=== PATIENT | female | born 2000 | race Caucasian/White ===

== ENCOUNTER 2018-05-18 12:57 | Emergency (ER) | payer SELFPAY ==
[2018-05-18 13:23] VITALS: BP 127/82; PULSE 67; TEMP 98.2; BMI 33.5
--- NOTE | 2018-05-18 14:14 | PDOC ---
History of Present Illness - General Chief Complaint: Urinary Problem Stated Complaint: Pain Time Seen by Provider: 05/18/18 13:59 - History of Present Illness Initial Comments: 05/18/18 14:13 18-year-old female with dysuria times one day without systemic symptoms. She has no comorbidities Past History - Past Medical History Allergies/Adverse Reactions: Allergies Allergy/AdvReac Type Severity Reaction Status Date / Time No Known Allergies Allergy Verified 05/18/18 13:19 Home Medications: Ambulatory Orders Nitrofurantoin Monohyd/M-Cryst [Macrobid -] 100 mg PO BID #14 capsule 05/18/18 COPD: No - Immunization History Immunization Up to Date: Yes - Suicide/Smoking/Psychosocial Hx Smoking History: Never smoked Drug/Substance Use Hx: Yes (MARIJUANA) Review of Systems - Review of Systems : Yes: Burning, Dysuria *Physical Exam - Vital Signs Last Vital Signs Temp Pulse Resp BP Pulse Ox 98.2 F 67 16 127/82 100 05/18/18 13:20 05/18/18 13:20 05/18/18 13:20 05/18/18 13:20 05/18/18 13:20 - Physical Exam Comments: 05/18/18 14:13 HEAD: NC/AT EYES: Conjuntiva clear MS: Full ROM in all joints without edema NEUROLOGIC: No gross sensory or motor deficits, NVID SKIN: Normal color and temperature no lesions or rashes Moderate Sedation - Procedure Monitoring Vital Signs: Procedure Monitoring Vital Signs Temperature 98.2 F 05/18/18 13:20 Pulse Rate 67 05/18/18 13:20 Respiratory Rate 16 05/18/18 13:20 Blood Pressure 127/82 05/18/18 13:20 O2 Sat by Pulse Oximetry (%) 100 05/18/18 13:20 *DC/Admit/Observation/Transfer Diagnosis at time of Disposition: UTI (urinary tract infection) - Discharge Dispostion Disposition: HOME Condition at time of disposition: Stable Decision to Admit order: No - Prescriptions Prescriptions: Nitrofurantoin Monohyd/M-Cryst [Macrobid -] 100 mg PO BID #14 capsule - Referrals Referrals: Peterson Beckman MD [Primary Care Provider] - - Patient Instructions Printed Discharge Instructions: DI for Urinary Tract Infection (UTI) Additional Instructions: Return to the emergency room should symptoms worsen or go unresolved. Please follow-up with your primary care physician in one to 2 days for further evaluation and treatment options. Please take the antibiotics as directed. - Post Discharge Activity
[2018-05-18 14:49] LABS: HCG,QUALITATIVE URINE Negative
[2018-05-18 14:59] LABS: URINE APPEARANCE SLCLOUDY; URINE BILIRUBIN NEGATIVE (<2.0 mg/dL); URINE COLOR YELLOW; URINE GLUCOSE (UA) NEGATIVE (NEGATIVE); URINE KETONE NEGATIVE (NEGATIVE); URINE LEUK ESTERASE 1+ (NEGATIVE); URINE NITRITE NEGATIVE (NEGATIVE); URINE PROTEIN 2+ (NEGATIVE); URINE UROBILINOGEN NEGATIVE mg/dL (0.2-1.0)
[2018-05-18 15:13] LABS: EPI CELLS FEW /HPF (FEW); URINE MUCUS RARE
== END 2018-05-18 15:28 | disposition home or self-care (01) ==
LOC: JERFT 12:57
DX: N39.0 Urinary tract infection, site not specified (principal)
CPT/HCPCS: 81003; 81015; 84703; 87086; 99281-25

== ENCOUNTER 2018-06-22 13:02 | Emergency (ER) | payer OTHER ==
[2018-06-22 13:11] VITALS: BP 109/54; PULSE 78; TEMP 98.7; BMI 33.0
--- NOTE | 2018-06-22 14:51 | PDOC ---
History of Present Illness - General Chief Complaint: Vaginal Bleeding Stated Complaint: CYST PAIN Time Seen by Provider: 06/22/18 13:42 History Source: Patient Exam Limitations: No Limitations - History of Present Illness Travel History: No Initial Comments: 06/22/18 15:20 18-year-old female presents to ED with complaints of vaginal spotting upon urination this morning. Patient also complaining of mild mid suprapubic cramping. Patient states LMP was the 22nd of last month but has confirmed her with her first visit at [facility] last week. Patient states has an ultrasound pending in 2 weeks. Patient denies fever, chills or urinary complaints. Patient denies back pain headache, dizziness or weakness. Timing/Duration: reports: constant Quality: reports: mild, cramping Abdominal Pain Onset Location: reports: suprapubic Pain Radiation: reports: no radiation Activities at Onset: reports: none Aggravating Factors: improves with: None Alleviating Factors: improves with: None Past History - Travel Traveled outside of the country in the last 30 days: No Close contact w/someone who was outside of country & ill: No - Past Medical History Allergies/Adverse Reactions: Allergies Allergy/AdvReac Type Severity Reaction Status Date / Time No Known Allergies Allergy Verified 05/18/18 13:19 Home Medications: Ambulatory Orders NK [No Known Home Medication] 06/22/18 COPD: No Other medical history: lt. Ovarian cyst - Immunization History Immunization Up to Date: Yes - Suicide/Smoking/Psychosocial Hx Smoking History: Former smoker Have you smoked in the past 12 months: No Information on smoking cessation initiated: No Hx Alcohol Use: No Drug/Substance Use Hx: No Patient Lives Alone: No Lives with/in: parents Review of Systems - Review of Systems Able to Perform ROS?: Yes Constitutional: No: Symptoms Reported HEENTM: No: Symptoms Reported Respiratory: No: Symptoms reported Cardiac (ROS): No: Symptoms Reported ABD/GI: Yes: Abdominal cramping : Yes: Discharge (vag bleeding). No: Symptoms Reported Musculoskeletal: No: Symptoms Reported Integumentary: No: Symptoms Reported Neurological: No: Symptoms reported Hematologic/Lymphatic: No: Symptoms Reported *Physical Exam - Vital Signs Last Vital Signs Temp Pulse Resp BP Pulse Ox 98.7 F 78 18 109/54 L 100 06/22/18 13:08 06/22/18 13:08 06/22/18 13:08 06/22/18 13:08 06/22/18 13:08 - Physical Exam General Appearance: Yes: Nourished, Appropriately Dressed. No: Apparent Distress HEENT: positive: EOMI, LAISHA, TMs Normal, Pharynx Normal Neck: positive: Supple Respiratory/Chest: positive: Lungs Clear, Normal Breath Sounds. negative: Respiratory Distress, Accessory Muscle Use Cardiovascular: positive: Regular Rhythm, Regular Rate. negative: Murmur Female Pelvic Exam: positive: cervical os closed, vaginal bleeding (scant light brown). negative: adnexal tenderness Gastrointestinal/Abdominal: positive: Soft, Tenderness (mild mid suprapubic) Musculoskeletal: negative: CVA Tenderness Integumentary: positive: Normal Color, Warm, Moist Neurologic: positive: Motor Strength 5/5 (mbulatory) Moderate Sedation - Procedure Monitoring Vital Signs: Procedure Monitoring Vital Signs Temperature 98.7 F 06/22/18 13:08 Pulse Rate 78 06/22/18 13:08 Respiratory Rate 18 06/22/18 13:08 Blood Pressure 109/54 L 06/22/18 13:08 O2 Sat by Pulse Oximetry (%) 100 06/22/18 13:08 ED Treatment Course - LABORATORY CBC & Chemistry Diagram: 06/22/18 14:45 06/22/18 14:50 - RADIOLOGY Radiology Studies Ordered: Category Date Time Status TRANSVAGINAL US PREG [US] Stat Ultrasound 06/22/18 13:47 Ordered Medical Decision Making - Medical Decision Making 06/22/18 15:55 CC: Vaginal spotting since this morning with mid suprapubic tenderness. Patient states approximate 6-7 weeks . Exam. Patient with mid suprapubic tenderness no adnexal tenderness with scant light brown blood noted in vault. Plan: Labs urine and ultrasound ordered 06/22/18 18:16 Laboratory Tests 06/22/18 06/22/18 06/22/18 14:41 14:45 14:50 WBC 9.6 Hgb 13.6 Hct 39.7 Absolute Neuts (auto) 6.5 Neutrophils % 67.3 Sodium 138 Potassium 4.2 Chloride 107 Carbon Dioxide 24 Anion Gap 7 L BUN 7 Creatinine 0.7 Random Glucose 88 Calcium 9.0 Total Bilirubin 0.2 AST 18 ALT 46 Alkaline Phosphatase 93 Total Protein 7.0 Albumin 3.9 Beta HCG, Quant 32798.0 Urine Ketones Negative Urine Blood 2+ H Urine Nitrite Negative Ur Leukocyte Esterase Negative Urine WBC (Auto) <1 Urine RBC (Auto) <1 06/22/18 18:19 Noted viable intrauterine gestation measuring 5 weeks 5 days. No definitive sonographic abnormality identified. Discharge recommendations to start vitamins. *DC/Admit/Observation/Transfer Diagnosis at time of Disposition: Threatened - Discharge Dispostion Disposition: HOME Condition at time of disposition: Good - Referrals - Patient Instructions Printed Discharge Instructions: DI for Threatened Additional Instructions: Start taking prenatals and increase your vegetable, food intake including apricots pistachios almonds and other foods high in folic acid. Please follow-up with your OFFICE MACHINE SERVICE SUPERVISOR and bring copy of the lab work and ultrasound with you. Please return to ED if you develop any severe abd pain, heavy vaginal bleeding, or dizziness. - Post Discharge Activity
[2018-06-22 14:57] LABS: URINE APPEARANCE CLEAR; URINE BILIRUBIN NEGATIVE (<2.0 mg/dL); URINE COLOR LTYELLOW; URINE GLUCOSE (UA) NEGATIVE (NEGATIVE); URINE KETONE NEGATIVE (NEGATIVE); URINE LEUK ESTERASE NEGATIVE (NEGATIVE); URINE NITRITE NEGATIVE (NEGATIVE); URINE PROTEIN NEGATIVE (NEGATIVE); URINE UROBILINOGEN NEGATIVE mg/dL (0.2-1.0)
[2018-06-22 15:06] LABS: BASO % 0.7 % (0-2.0); HEMATOCRIT 39.7 % (32.4-45.2); HEMOGLOBIN 13.6 GM/dL (10.7-15.3); LYMPH % 24.5 % (8-40); MCHC 34.3 g/dl (32.0-36.0); MEAN CELL VOLUME 90.2 fl (80-96); MEAN PLT VOLUME 9.3 fl (7.5-11.1); MONO % 6.5 % (3.8-10.2); NEUT % 67.3 % (42.8-82.8); PLATELET COUNT 273 K/MM3 (134-434); WHITE BLOOD COUNT 9.6 K/mm3 (4.0-10.0)
[2018-06-22 15:30] LABS: EPI CELLS RARE /HPF (FEW); URINE MUCUS RARE
[2018-06-22 15:53] LABS: ALBUMIN 3.9 g/dl (3.4-5.0); ALK PHOS 93 U/L (45-117); ANION GAP 7 MMOL/L (8-16); BILIRUBIN,TOTAL 0.2 mg/dL (0.2-1); BLOOD UREA NITROGEN 7 mg/dL (7-18); CHLORIDE 107 mmol/L (98-107); CO2 24 mmol/L (21-32); CREATININE 0.7 mg/dL (0.55-1.3); GLUCOSE,RANDOM 88 mg/dL (74-106); POTASSIUM 4.2 mmol/L (3.5-5.1); SGOT/AST 18 U/L (15-37); SGPT/ALT 46 U/L (13-61); SODIUM 138 mmol/L (136-145)
== END 2018-06-22 18:26 | disposition home or self-care (01) ==
LOC: JER 13:02
DX: O26.891 Other specified pregnancy related conditions, first trimester (principal); O20.0 Threatened abortion; Z3A.01 Less than 8 weeks gestation of pregnancy
CPT/HCPCS: 36415; 76817-TC; 80053; 81003; 81015; 84702; 85025; 86850; 86900; 86901; 87086; 99282-25

== ENCOUNTER 2019-02-06 18:35 | Inpatient (IN) | payer OTHER ==
[2019-02-06] MEDS: ELECTROLYTE-148 SOLN 1,000 ML IV SCH (19:50)
[2019-02-06] MEDS ORDERED: AMPICILLIN SODIUM 2 GM VIAL ONE (19:51)
--- NOTE | 2019-02-06 19:58 | HP ---
Past Medical History - Primary Care Physician PCP:: Zaki Bowman - Admission Chief Complaint: LOF since 6am History of Present Illness: She denies VB and reports +FM. Patient also reports mild contractions History Source: Patient Limitations to Obtaining History: No Limitations - Past Medical History CIGAR BANDER HAND: No: Alzheimer's, CVA, Dementia, Migraine, Multiple Sclerosis, Peripheral Neuropathy, Parkinson's, Seizure, Syncope, TIA, Vertigo, Other Cardiovascular: No: AFIB, Aneurysm, Aortic Insufficiency, Aortic Stenosis, CAD, CHF, Deep Vein Thrombosis, HTN, Hyperlipdemia, ID, Mitral Insufficiency, Mitral Stenosis, Murmur, Pulmonary Hypertension, Other Pulmonary: No: Asthma, Bronchitis, Cancer, COPD, O2 Dependent, Pneumonia, Previously Intubated, Pulmonary Embolus, Pulmonary Fibrosis, Sleep Apnea, Other Gastrointestinal: No: Ascites, Cancer, Constipation, Crohn's Disease, Diverticulitis, Diverticulosis, Esophageal Varices, Gastritis, GERD, GI Bleed, Hemorrhoids, Hiatal Hernia, Inflamatory Bowel Disease, Irritable Bowel Disease, Pancreatitis, Peptic Ulcer Disease, Ulcerative Colitis, Other Hepatobiliary: No: Cirrhosis, Cholelithiasis, Cholecystitis, Choledocholithiasis , Hepatitis A, Hepatitis B, Hepatitis C, Other Renal/: No: Renal Failure, Renal Inusuff, BPH, Cancer, Hematuria, Hemodialysis , Neurogenic Bladder, Renal Calculi, UTI, Other Reproductive: No: Ectopic , Endometriosis, Fibroids, PID, Polycystic Ovary Syndrome, Postmenopausal, Other Heme/Onc: No: Anemia, B12 Deficiency, Bleeding Disorder, Cancer, Current Chemotherapy, Current Radiation Therapy, Hemochromatosis, Hypercoaguable State, Myeloproliferative Synd, Sickle Cell Disease, Sickle Cell Trait, Thrombocytopenia, Other Infectious Disease: No: AIDS, C-Diff, Herpes Zoster, HIV, MRSA, STD's, Tuberculosis, VREF, Other Psych: No: Addictions, Anxiety, Bipolar, Depression, Panic, Psychosis, Schizophrenia, Other Musculoskeletal: No: Bursitis, Chronic low back pain, Hemiparesis, Hemiplegia, Osteoarthritis, Paraplegia, Other Rheumatology: No: Fibromyalgia, Gout, Lupus, Rheumatoid Arthritis, Sarcoidosis, Vasculitis, Other ENT: No: Allergic Rhinitis, Sinusitis, Other Endocrine: No: Jose's Disease, [place]'s Disease, Diabetes Insipidus, Diabetes Mellitus, Hyperparathyroidism, Hyperthyroidism, Hypothyroidism, Osteopenia, SIADH, Other Dermatology: No: Basal Cell, Cellulitis, Eczema, Melanoma, Psoriasis, Squamous Cell, Other - Past Surgical History Past Surgical History: No: None, AAA Repair, AICD, Amputation, Appendectomy, Arthrosocopy, AV Fistula/Graft, Bariatric Surgery, Breast Biopsy, Bypass, CABG, Carotid Endarterectomy, Cataract Removal, Cholecystectomy, Colectomy, Colonoscopy, Colostomy, Craniotomy, , Cystectomy, Hernia Repair, Hysterectomy, Ileal Conduit, Ileosotomy, Joint Replacement, Kidney Transplant, Laminectomy, Liver Transplant, Mastectomy, Nephrectomy, Oopherectomy, Orchiectomy, Permanent Pacemaker, Prostatectomy, Splenectomy, Stent, Thoracotomy , TURP, Tonsillectomy, Tubal Ligation, Upper Endoscopy, Valve Replacement, Vasectomy, Vein Stripping/Ligation Hx Myomectomy: No Hx Transabdominal Cerclage: No - Smoking History Smoking history: Former smoker Have you smoked in the past 12 months: No - Alcohol/Substance Use Hx Alcohol Use: No Home Medications - Allergies Allergies/Adverse Reactions: Allergies Allergy/AdvReac Type Severity Reaction Status Date / Time No Known Allergies Allergy Verified 12/10/18 18:47 - Home Medications Home Medications: Ambulatory Orders Ferrous Sulfate [Iron] 325 mg PO DAILY 12/10/18 Vit No.129/Iron/Folic [ One Daily Tablet] 1 tab PO DAILY Review of Systems Findings/Remarks: Leaking fluid - Review of Systems Constitutional: reports: No Symptoms Eyes: reports: No Symptoms HENT: reports: No Symptoms Neck: reports: No Symptoms Cardiovascular: reports: No Symptoms Respiratory: reports: No Symptoms Gastrointestinal: reports: No Symptoms Genitourinary: reports: No Symptoms Breasts: reports: No Symptoms Reported Musculoskeletal: reports: No Symptoms Integumentary: reports: No Symptoms Neurological: reports: No Symptoms Endocrine: reports: No Symptoms Hematology/Lymphatic: reports: No Symptoms Psychiatric: reports: No Symptoms Physical Exam - Maternity Constitutional: Yes: Calm HENT: Yes: Atraumatic, Normocephalic, Tonsillar Exudate Cardiovascular: Yes: Regular Rate and Rhythm Breast(s): Yes: Other (deferred) - Abdominal Exam/OB Number of Fetuses: Single Presentation: Vertex (bedside sono: cephalic presentation, Anhydramnios ( no measurable packet)) Contractions: Yes Regularity: Irregular Intensity: Mild Monitor Mode: External Heart Rate (range): 150 Category: I Accelerations: Uniform Decelerations: None - Vaginal Exam/OB Vaginal Bleediing: Yes Speculum Exam: No Dilatation (cm): 0.5 Effacement (%): 50 Amniotic Membrane Status: Leaking Nitrazine Test: Positive Presentation: Vertex/Position Station: -3 - Physical Exam Musculoskeletal: Yes: WNL Extremities: Yes: WNL Edema: Yes Edema: LLE: Trace, RLE: Trace Integumentary: Yes: WNL ...Motor Strength: WNL Psychiatric: Yes: Alert, Oriented Imaging - Results Ultrasound: Report Reviewed Assessment/Plan 18 y/o P0 @ 38.3 wks, PROM since 1 am, no evidence of chorioamnionitis, reassuring status and stable maternal condition. Significance of PROM explained as well as indication for induction of labor. All questions answered. Unable to obtain hard copy of 36 wks labs but attending confirms negative GC/ Chlamydia virtual results -Admit -Basic labs -Po cytotec protocol GBS + and prophylaxis ordered
[2019-02-06] MEDS ORDERED: AMPICILLIN - 2 GM in SODIUM CHLORIDE 100 ML IVPB ONE (20:00)
[2019-02-06 20:11] LABS: BASO % 1.2 % (0-2.0); EOS % 0.6 % (0-4.5); HEMATOCRIT 36.3 % (32.4-45.2); HEMOGLOBIN 12.4 GM/dL (10.7-15.3); MCH 30.8 pg (25.7-33.7); MCHC 34.1 g/dl (32.0-36.0); MEAN CELL VOLUME 90.1 fl (80-96); MONO % 5.1 % (3.8-10.2); NEUT % 65.1 % (42.8-82.8); RBC 4.03 M/mm3 (3.60-5.2); RDW 13.1 % (11.6-15.6); WHITE BLOOD COUNT 8.7 K/mm3 (4.0-10.0)
[2019-02-06 20:24] LABS: INR 0.9 (0.83-1.09); PROTHROMBIN TIME (PATIENT) 10.6 SEC (9.7-13.0)
[2019-02-06 20:29] LABS: BLOOD UREA NITROGEN 9.5 mg/dL (7-18); CALCIUM 8.8 mg/dL (8.5-10.1); CREATININE 0.7 mg/dL (0.55-1.3)
[2019-02-06 20:32] VITALS: BMI 36.3
[2019-02-06 21:06] LABS: MEAN PLT VOLUME 12.2 fl (7.5-11.1); PLATELET COUNT 199 K/MM3 (134-434)
[2019-02-06] MEDS: MISOPROSTOL 25 MCG TABLET (COMPOUNDED BY PHARMACY) PO SCH (22:00)
[2019-02-06] MEDS ORDERED: AMPICILLIN SODIUM 1 GM VIAL ONE (23:49)
[2019-02-06] MEDS: AMPICILLIN - 1 GM in SODIUM CHLORIDE 100 ML IVPB SCH (23:56)
[2019-02-07] MEDS ORDERED: BUTORPHANOL TARTRATE 1 MG/ML VIAL ONE (00:27)
[2019-02-07] MEDS ORDERED: PROMETHAZINE HCL 25 MG/1 ML VIAL ONE (00:27)
[2019-02-07] MEDS ORDERED: BUTORPHANOL TARTRATE 2 MG/ML VIAL IVPB ONE (00:45)
[2019-02-07] MEDS ORDERED: PROMETHAZINE HCL 25 MG/1 ML VIAL IVPB ONE (00:45)
[2019-02-07] MEDS: MISOPROSTOL 25 MCG TABLET (COMPOUNDED BY PHARMACY) PO SCH (02:14)
[2019-02-07] MEDS ORDERED: OXYTOCIN 30 UNITS in 0.9% NS 30 UNIT/500 ML INFUS.BAG IVPB ONE (03:07)
[2019-02-07] MEDS: OXYTOCIN 30 UNITS in 0.9% NS 30 UNIT/500 ML INFUS.BAG IVPB SCH (03:15)
[2019-02-07] MEDS ORDERED: AMPICILLIN SODIUM 1 GM VIAL ONE ×2 (04:08→07:33)
[2019-02-07] MEDS: AMPICILLIN - 1 GM in SODIUM CHLORIDE 100 ML IVPB SCH ×3 (04:11→13:06)
[2019-02-07] MEDS ORDERED: FENTANYL/BUPIVACAINE/NS/PF - PCEA - 50 ML DISP.SYRIN EP ONE (07:57)
[2019-02-07] MEDS ORDERED: LIDO 2%/EPI 1:200000 PRESRVFRE (20 ML SDVIAL) ONE (08:05)
[2019-02-07] MEDS ORDERED: BUPIVACAINE HCL/PF 2.5 MG/ML - 30 ML VIAL IJ ONE (08:05)
--- NOTE | 2019-02-07 08:05 | PN ---
Ante-Partal Exam - Subjective Subjective: Patient evaluated for pain Vital Signs: Vital Signs Temperature 98.4 F 02/07/19 07:00 Pulse Rate 65 02/07/19 07:00 Respiratory Rate 18 02/07/19 07:00 Blood Pressure 157/90 02/07/19 07:00 O2 Sat by Pulse Oximetry (%) Bleeding: No Headache: No Visual changes: No Right upper quadrant pain: No - Contractions Contractions: Yes Regularity: Regular Intensity: Mod/Strong Monitor Mode: External - Exam during Labor Heart Rate: 140 Variability: Moderate Category: I Monitor Accelerations: Present Monitor Decelerations: None Exam: Vaginal Dilatation (cm): 7 Effacement (%): 90 Presentation: Vertex Station: -2 - Assessment/Plan Assessment/Plan: 18 y/o P0 @ 38.3wks, active labor, reassuring status, elevated BP and asymptomatic, desiring epidural -Epidural is OK -PEC labs -Monitor BP after epidural -Patient signed out to Dr Dumont
[2019-02-07] MEDS: FENTANYL/BUPIVACAINE/NS/PF - PCEA - 50 ML DISP.SYRIN EP SCH (08:25)
[2019-02-07] MEDS ORDERED: NALOXONE HCL 0.4 MG/ML VIAL IVPUSH PRN (09:14)
[2019-02-07 09:16] LABS: BASO % 0.7 % (0-2.0); EOS % 0.3 % (0-4.5); HEMATOCRIT 35.5 % (32.4-45.2); HEMOGLOBIN 11.8 GM/dL (10.7-15.3); LYMPH % 18.2 % (8-40); MCH 30.3 pg (25.7-33.7); MCHC 33.3 g/dl (32.0-36.0); MEAN CELL VOLUME 91.1 fl (80-96); MEAN PLT VOLUME 11.7 fl (7.5-11.1); MONO % 4.4 % (3.8-10.2); NEUT % 76.4 % (42.8-82.8); PLATELET COUNT 175 K/MM3 (134-434); RBC 3.89 M/mm3 (3.60-5.2); RDW 13.5 % (11.6-15.6); WHITE BLOOD COUNT 10.9 K/mm3 (4.0-10.0)
[2019-02-07 09:51] LABS: ALBUMIN 2.5 g/dl (3.4-5.0); BILIRUBIN,TOTAL 0.6 mg/dL (0.2-1); BLOOD UREA NITROGEN 8.3 mg/dL (7-18); CALCIUM 8.4 mg/dL (8.5-10.1); CREATININE 0.7 mg/dL (0.55-1.3); POTASSIUM 3.8 mmol/L (3.5-5.1); TOT PROT 5.7 g/dl (6.4-8.2); URIC ACID 6.4 mg/dL (2.6-7.2)
--- NOTE | 2019-02-07 10:29 | PN ---
Progress Note, Labor Vaginal Exam #2 Labor Exam Date: 02/07/19 Labor Exam Time: 10:28 Heart Rate (range): Cat 1 Dilatation: 10 Effacement (%): 100 Amniotic Membrane Status: Ruptured Presentation: Vertex/Position Station: -3 Remarks: Start pushing Anticipate
[2019-02-07] MEDS ORDERED: LIDOCAINE HCL 1% PRESERVATIVE FREE - 30ML VIAL ONE (10:46)
[2019-02-07] MEDS ORDERED: OXYTOCIN 20 UNITS in 0.9% NS 20 UNIT/1,000 ML INFUS.BAG IV ONE (10:46)
[2019-02-07] MEDS: OXYTOCIN 20 UNITS in 0.9% NS 20 UNIT/1,000 ML INFUS.BAG IV SCH (11:20)
[2019-02-07] MEDS ORDERED: METHYLERGONOVINE MALEATE 0.2 MG/1 ML AMP IM PRN (11:26)
[2019-02-07] MEDS ORDERED: WITCH HAZEL 50% (TUCKS) 40 PAD/JAR PAD TP PRN (11:26)
[2019-02-07] MEDS ORDERED: BENZOCAINE 28 GM HEMORRHOIDAL OINTMENT TP PRN (11:26)
[2019-02-07] MEDS ORDERED: BENZOCAINE 20% 57 GM BOTTLE TP PRN (11:26)
[2019-02-07] MEDS ORDERED: BISACODYL 10 MG SUPP.RECT RC PRN (11:26)
--- NOTE | 2019-02-07 11:26 | PN ---
Delivery - Delivery Vaginal Delivery: Spontaneous Type of Anesthesia: Epidural Episiotomy/Laceration: Midline, 1st degree EBL (cc): 250 Delivery, Single - Stages of Labor Placenta: Yes: Spontaneous - Condition of Jewelry Sales/Funding Coordinator Present: No Gender: Male Position: Left, OA - 1 Minute Total Score: 9 5 Minutes Total Score: 9 - [place] Feeding Plan Initial Plan: Elected not to breastfeed exclusively throughout hospitalization Remarks - Remarks Remarks: of VMI from JIMMY position over intact perineum. Epidural anesthesia. 38 week gestation. Spontaneous delivery of anterior shoulder and body. Cord clamped and cut. Infant placed on maternal abdomen. Weight pending to allow sufficient skin to skin. Apgars 9/9. Spontaneous delivery of intact placenta with 3VC. Fundus firm. Perineum inspected, first degree laceration noted, repaired with 2-0 chromic. Hemostasis noted. Mother and baby doing well. Renée Dumont MD
[2019-02-07 15:36] LABS: POC NITRAZINE POS
[2019-02-07] MEDS: ACETAMINOPHEN 325 MG TABLET (FP) PO PRN ×2 (16:04→21:03)
[2019-02-07] MEDS: IBUPROFEN 600 MG TABLET (FP) PO PRN ×2 (16:05→21:03)
[2019-02-08 07:24] LABS: BASO % 0.3 % (0-2.0); EOS % 0.6 % (0-4.5); HEMATOCRIT 25.4 % (32.4-45.2); HEMOGLOBIN 8.7 GM/dL (10.7-15.3); LYMPH % 28.3 % (8-40); MCH 31.4 pg (25.7-33.7); MCHC 34.4 g/dl (32.0-36.0); MEAN CELL VOLUME 91.2 fl (80-96); MEAN PLT VOLUME 11.2 fl (7.5-11.1); MONO % 5.8 % (3.8-10.2); PLATELET COUNT 131 K/MM3 (134-434); RBC 2.78 M/mm3 (3.60-5.2); RDW 13.4 % (11.6-15.6); WHITE BLOOD COUNT 9.5 K/mm3 (4.0-10.0)
--- NOTE | 2019-02-08 08:05 | PN ---
Post Progress Note - Subjective Subjective: Pain controlled. Lochia c/w menses. No dizziness. Ambulating without issues. Voiding freely Post Day: 1 Type of Delivery: Vital Signs: Vital Signs Temperature 98.3 F 02/08/19 05:35 Pulse Rate 81 02/08/19 05:35 Respiratory Rate 18 02/08/19 05:35 Blood Pressure 131/78 02/08/19 05:35 O2 Sat by Pulse Oximetry (%) 100 02/07/19 12:15 Uterus: Yes: Fundus below umbilicus Abdomen/GI: Yes: Abdomen soft Lochia: Yes: Rubra Lochia, amount: Small Extremities: Yes: Calves non-tender Perineum: Yes: Intact Activity: Ambulating - Labs Labs: CBC WBC 9.5 K/mm3 (4.0-10.0) 02/08/19 06:20 RBC 2.78 M/mm3 (3.60-5.2) L 02/08/19 06:20 Hgb 8.7 GM/dL (10.7-15.3) L 02/08/19 06:20 Hct 25.4 % (32.4-45.2) L D 02/08/19 06:20 MCV 91.2 fl (80-96) 02/08/19 06:20 MCH 31.4 pg (25.7-33.7) 02/08/19 06:20 MCHC 34.4 g/dl (32.0-36.0) 02/08/19 06:20 RDW 13.4 % (11.6-15.6) 02/08/19 06:20 Plt Count 131 K/MM3 (134-434) L D 02/08/19 06:20 MPV 11.2 fl (7.5-11.1) H 02/08/19 06:20 Absolute Neuts (auto) 6.2 K/mm3 (1.5-8.0) 02/08/19 06:20 Neutrophils % 65.0 % (42.8-82.8) 02/08/19 06:20 Lymphocytes % 28.3 % (8-40) D 02/08/19 06:20 Monocytes % 5.8 % (3.8-10.2) 02/08/19 06:20 Eosinophils % 0.6 % (0-4.5) D 02/08/19 06:20 Basophils % 0.3 % (0-2.0) 02/08/19 06:20 Nucleated RBC % 0 % (0-0) 02/08/19 06:20
[2019-02-08] MEDS: ACETAMINOPHEN 325 MG TABLET (FP) PO PRN ×2 (08:35→21:03)
[2019-02-08] MEDS: IBUPROFEN 600 MG TABLET (FP) PO PRN ×2 (08:35→21:03)
[2019-02-08] MEDS: PRENATAL VITAMINS W/ FOLIC ACID TABLET (FP) PO SCH (10:56)
[2019-02-08] MEDS: ELECTROLYTE-148 SOLN 1,000 ML IV SCH (20:27)
[2019-02-08] MEDS: OXYTOCIN 30 UNITS in 0.9% NS 30 UNIT/500 ML INFUS.BAG IVPB SCH (20:33)
[2019-02-08] MEDS: OXYTOCIN 20 UNITS in 0.9% NS 20 UNIT/1,000 ML INFUS.BAG IV SCH (20:33)
[2019-02-08] MEDS: FENTANYL/BUPIVACAINE/NS/PF - PCEA - 50 ML DISP.SYRIN EP SCH (20:33)
[2019-02-08] MEDS: MISOPROSTOL 25 MCG TABLET (COMPOUNDED BY PHARMACY) PO SCH (20:33)
[2019-02-08] MEDS ORDERED: SENNOSIDES/DOCUSATE COMBO (SENNA PLUS) TABLET (UD) PO PRN (22:00)
[2019-02-09 08:53] VITALS: TEMP 98.2
[2019-02-09] MEDS: PRENATAL VITAMINS W/ FOLIC ACID TABLET (FP) PO SCH (09:14)
--- NOTE | 2019-02-09 11:20 | PN ---
Post Progress Note - Subjective Subjective: no complains no c/o dizziness Post Day: 1 Type of Delivery: Vital Signs: Vital Signs Temperature 98.2 F 02/09/19 08:00 Pulse Rate 75 02/09/19 08:00 Respiratory Rate 20 02/09/19 08:00 Blood Pressure 132/84 02/09/19 08:00 O2 Sat by Pulse Oximetry (%) 100 02/07/19 12:15 Breast Exam: Yes: Soft, Other (Breast & bottle feeding ). No: Engorged Uterus: Yes: Fundus Firm, Fundus below umbilicus, Non-tender Lochia: Yes: Rubra Lochia, amount: Moderate Extremities: Yes: Calves non-tender Perineum: Yes: Laceration (healing ) Activity: Ambulating - Labs Labs: CBC WBC 9.5 K/mm3 (4.0-10.0) 02/08/19 06:20 RBC 2.78 M/mm3 (3.60-5.2) L 02/08/19 06:20 Hgb 8.7 GM/dL (10.7-15.3) L 02/08/19 06:20 Hct 25.4 % (32.4-45.2) L D 02/08/19 06:20 MCV 91.2 fl (80-96) 02/08/19 06:20 MCH 31.4 pg (25.7-33.7) 02/08/19 06:20 MCHC 34.4 g/dl (32.0-36.0) 02/08/19 06:20 RDW 13.4 % (11.6-15.6) 02/08/19 06:20 Plt Count 131 K/MM3 (134-434) L D 02/08/19 06:20 MPV 11.2 fl (7.5-11.1) H 02/08/19 06:20 Absolute Neuts (auto) 6.2 K/mm3 (1.5-8.0) 02/08/19 06:20 Neutrophils % 65.0 % (42.8-82.8) 02/08/19 06:20 Lymphocytes % 28.3 % (8-40) D 02/08/19 06:20 Monocytes % 5.8 % (3.8-10.2) 02/08/19 06:20 Eosinophils % 0.6 % (0-4.5) D 02/08/19 06:20 Basophils % 0.3 % (0-2.0) 02/08/19 06:20 Nucleated RBC % 0 % (0-0) 02/08/19 06:20 Problem List - Problems (1) Encounter for care after hospital delivery Code(s): Z39.2 - ENCOUNTER FOR ROUTINE FOLLOW-UP Assessment/Plan pp anemia discussed with patient anemia counselled , diet & meds explained discharge today
[2019-02-09 14:31] VITALS: BP 131/62; PULSE 81
== END 2019-02-09 16:35 | disposition home or self-care (01) | DRG 560 ==
LOC: JLDR 18:35 → J3W 02-07 14:27
PROVIDERS: ADMIT Student in an Organized Health Care Education/Training Program; ATTEND Student in an Organized Health Care Education/Training Program
PROC: 10E0XZZ Delivery of Products of Conception, External Approach (ICD-10-PCS; principal; 2019-02-07)
PROC: 0W8NXZZ Division of Female Perineum, External Approach (ICD-10-PCS; 2019-02-07)
PROC: 0HQ9XZZ Repair Perineum Skin, External Approach (ICD-10-PCS; 2019-02-07)
DX: O70.0 First degree perineal laceration during delivery (principal); Z3A.38 38 weeks gestation of pregnancy; Z22.330 Carrier of Group B streptococcus; Z37.0 Single live birth
CPT/HCPCS: 36415; 59409; 80048; 80053; 82570; 83615; 83986-QW; 84156; 84550; 85025; 85610; 86593; 86850; 86900; 86901; 87389